=== PATIENT | female | born 1940 | race Caucasian/White ===

== ENCOUNTER 2018-08-25 20:14 | Inpatient (IN) | payer MEDICARE ==
[2018-08-25 20:56] LABS: #Basophils 0.1 thou/uL (0.0-0.2); #Eosinphils 0.1 thou/uL (0.0-0.7); %Basophils 0.4 % (0.0-1.0); %Eosinophils 0.7 % (0.0-10.0); %Lymphocytes 15.1 % (21.0-51.0); %Monocytes 7.7 % (0.0-10.0); %Neutrophils 76.1 % (42.0-75.0); Hemoglobin 8.5 g/dL (12.0-16.0); Mean Corpuscular HGB CONC 32.3 g/dL (32.0-36.0); Mean Corpuscular Hemoglobin 28.2 pg (27.0-31.0); Mean Corpuscular Volume 87.5 fL (78.0-98.0); Mean Platelet Volume 9.2 fL (7.4-10.4); Platelet Count 349 thou/uL (130-400); Red Blood Cell (RBC) Count 3.01 mill/uL (4.20-5.40); White Blood Cell (WBC) Count 13.1 thou/uL (4.8-10.8)
[2018-08-25 21:21] LABS: ALT (SGPT) 9 U/L (8-55); AST (SGOT) 13 U/L (5-34); Albumin 3.8 g/dL (3.4-4.8); Alkaline Phosphatase 67 U/L (40-150); Anion Gap 15 mmol/L (10-20); BUN (Urea Nitrogen) 39 mg/dL (9.8-20.1); Bilirubin, Total 0.3 mg/dL (0.2-1.2); Calc. Creatinine Clearance 0 mL/min (70-130); Calcium 8.9 mg/dL (7.8-10.44); Carbon Dioxide 23 mmol/L (23-31); Chloride 105 mmol/L (98-107); Estimated GFR-MDRD 44; Globulin 2.6 g/dL (2.4-3.5); Glucose 135 mg/dL (83-110); Potassium 3.7 mmol/L (3.5-5.1); Protein, Total 6.4 g/dL (6.0-8.3); Sodium 139 mmol/L (136-145)
--- NOTE | 2018-08-25 21:33 | RAD ---
FRONTAL AND LATERAL IMAGING CHEST 08/25/18 COMPARISON: None. HISTORY: Dyspnea with exertion. FINDINGS: Dual lead transvenous pacing device inserted the left subclavian approach. Mild elevation of right he midiaphragm. Mild diffuse increased linear interstitial density. No pneumothorax, pleural fluid, foca l consolidation or alveolar edema. IMPRESSION: No acute findings. Chronic findings as above. POS: ANTONIOH
[2018-08-26 02:37] VITALS: BMI 25.7
[2018-08-26] MEDS ORDERED: Sodium Chloride 0.9% 1,000 ML IV SCH (02:59)
--- NOTE | 2018-08-26 09:29 | ULT ---
BILATERAL CAROTID DUPLEX ULTRASOUND: HISTORY: Syncope, dizziness. FINDINGS: Real-time color Doppler evaluation of right and left carotid systems was performed. This shows moder ate plaque formation at the origin of both internal carotid arteries. On the right side, peak systolic velocities of the common carotid were 132 cm/s. internal carotid ve locities were 122 cm/s. External carotid velocities were 157 cm/s. On the left side peak systolic velocities of the common carotid were 132 cm/s. Internal carotid velo cities were 120 cm/s. External carotid velocities were 108 cm/s. Vertebral flow is antegrade bilaterally. IMPRESSION: Moderate plaque formation at the origin of both internal carotid arteries. No hemodynamically signif icant stenosis by NASCET criteria. POS: RIZWAN
[2018-08-26] MEDS ORDERED: Guaifenesin DM 100-10/5 ML UDCUP PO PRN (11:28)
[2018-08-26] MEDS ORDERED: Senokot S 8.6-50 MG TAB PO PRN (11:28)
[2018-08-26 12:06] LABS: Hemoglobin 6.7 g/dL (12.0-16.0)
[2018-08-26] MEDS: Sodium Chloride 0.9% 1,000 ML IV SCH (12:55)
--- NOTE | 2018-08-26 12:59 | HP ---
REASON FOR ADMISSION: Possible GI bleed, acute kidney injury, and vasovagal syncope. HISTORY OF PRESENT ILLNESS: The patient gives history of feeling dizzy when she tries to get up from sitting down position. This started on Wednesday. This has gotten worse over the course of 2 days. The patient also has severe nauseating feeling when she tries to get up. No complaints of bleeding per rectum. She does not recall her previous hemoglobin level, but definitely knows it is not in the single digits. She is taking Xarelto for chronic atrial fibrillation. No complaints of abdominal pain, diarrhea, or flu-like illness. The patient states she has been hydrating as before. PAST MEDICAL AND SURGICAL HISTORY: Apparently has [place] mitral valve issues with no intervention done for that from 1983 and has been stable per the patient. Chronic atrial fibrillation, irritable bowel syndrome, history of migraine, osteoarthritis, pacemaker for bradycardia, and appendectomy. Last colonoscopy was in [place], 8 years back, which was apparently normal as far as she knows. CURRENT MEDICATIONS: 1. Xarelto 20 mg p.o. daily. 2. Toprol-XL 25 mg p.o. daily. ALLERGIES: ALLERGIC TO ROCEPHIN. PERSONAL HISTORY: Does not abuse alcohol or drugs. Quit smoking more than 16 years ago. Lives with her . FAMILY HISTORY: Mother at the age of 75 years. She has had history of intracranial bleed and was on Coumadin for atrial fibrillation. Father at the age of 75 years. He has had history of brain cancer. CODE STATUS: Full. Power of securities attorney is her . REVIEW OF SYSTEMS: CONSTITUTIONAL: Negative for weight loss or gain, ability to conduct usual activities. SKIN: Negative for rash, itching. EYES: Negative for double vision, pain. ENT/MOUTH: Negative for nose bleeding, neck stiffness, pain, tenderness. CARDIOVASCULAR: Negative for palpitations, dyspnea on exertion, orthopnea. RESPIRATORY: Negative for shortness of breath, wheezing, cough, hemoptysis, fever or night sweats. GASTROINTESTINAL: Negative for poor appetite, abdominal pain, heartburn, nausea, vomiting, constipation, or diarrhea. GENITOURINARY: Negative for urgency, frequency, dysuria, nocturia. MUSCULOSKELETAL: Negative for pain, swelling. NEUROLOGIC/PSYCHIATRIC: Negative for anxiety, depression. ALLERGY/IMMUNOLOGIC: Negative for skin rash, bleeding tendency. Please see short and difficult for urgency, frequency, dysuria, nocturia. MUSCULOSKELETAL: Negative for pain, swelling. NEUROLOGIC/PSYCHIATRIC: Negative for anxiety, depression. ALLERGY/IMMUNOLOGIC: Negative for skin rash, bleeding tendency. PHYSICAL EXAMINATION: GENERAL: The patient is a 78-year-old female, who is currently not in any acute distress. VITAL SIGNS: Blood pressure 112/60, pulse 98 per minute, respiratory rate 20 per minute, temperature 97.9 degrees Fahrenheit, and saturating 96% on room air. NECK: Supple. No elevated JVD. HEENT: Eyes, extraocular muscles intact. Pupils are reacting to light. Oral cavity, mucous membranes are dry. No exudates or congestion. CARDIOVASCULAR SYSTEM: S1 and S2 heard. Regular rhythm. RESPIRATORY SYSTEM: Air entry 1+ bilateral. No rales or rhonchi. ABDOMEN: Soft. Bowel sounds heard. No tenderness, rigidity, or guarding. EXTREMITIES: No peripheral edema or calf tenderness. VASCULAR SYSTEM: Peripheral pulses 1+ bilateral. No ischemic ulcerations or gangrene. CENTRAL NERVOUS SYSTEM: No gross focal deficits noted. The patient is alert, awake, and oriented well. PSYCHIATRIC SYSTEM: The patient's mood is euthymic. No hallucinations or delusions. LABORATORY DATA: EKG done shows sinus tach at 105 beats per minute. There is nonspecific ST-T wave changes noted. H and H on arrival were 8.5 and 26 and a repeat 1 done at 11 a.m. shows it to be a 6.7 and 20. White count of 13, MCV is 87, and platelet count 349 with 76% neutrophils. BUN 39, creatinine 1.1, serum bicarb 23, and serum glucose 135. Liver enzymes within normal limits. First set of troponin is negative. Albumin is 3.8. Chest x-ray done shows no acute findings. There is mild elevation of right hemidiaphragm. Ultrasound carotids bilateral shows moderate plaque formation at the origin of both internal carotid arteries. No hemodynamically significant stenosis. CLINICAL IMPRESSION AND PLAN: The patient will be admitted to telemetry for likely GI bleed with acute blood loss anemia and acute kidney injury with vasovagal syncope. She will be on normal saline at 75 mL per hour. I will also place her on clear liquid diet. I have discussed her findings with Dr. Matthew Johnson. The last dose of Xarelto was yesterday and the patient will be given 2 units of packed cell transfusion for today. She will have both upper and lower endoscopies done in the morning. We will have serial H and H done. The patient at present has no obvious GI bleed. We will obtain stool occult blood testing as well. She will also be on Protonix 40 mg IV q.12 hourly. If needed, we will give prothrombin concentrate if the patient were to worsen with her H and H despite transfusion. We will continue her Toprol-XL as before. Job ID: [id number]
[2018-08-26] MEDS: Acetaminophen 325 MG TAB PO PRN (14:51)
--- NOTE | 2018-08-26 17:19 | CON ---
DATE OF CONSULTATION: 08/26/2018 REASON FOR CONSULTATION: Anemia. HISTORY OF PRESENT ILLNESS: Deborah London is a 78-year-old woman, who was admitted to the hospital last night with severe symptomatic anemia. She denies any prior gastrointestinal history. She carries a diagnosis of IBS, but really does not have much in the way of chronic GI symptoms. She recalls having undergone a colonoscopy about 8 years ago in [place] with no polyps, just some diverticulosis and internal hemorrhoids. She has never undergone upper endoscopy that she can recall. She is on Xarelto long-term for her atrial fibrillation. She does have a pacemaker in place. She has been on Xarelto for over 4 years with no prior complications. Just over the past 3 days, she started getting orthostatic lightheadedness and overall fatigue and weakness associated with nausea. She has had a few episodes of nonbloody emesis during this time. No bowel movements over the past couple of days, but her bowel movements have always been normal. She denies any melena or hematochezia, abdominal pain, or diarrhea. She denies any weight loss. She presented to the hospital last night and hemoglobin was found to be 8.5 with normal MCV of 87.5. It is unclear what her baseline is, but she does not recall ever being told she was anemic at least not any time recently. She has had no evidence of overt bleeding since arrival. She is going to be getting 2 units RBC transfusion as hemoglobin did decline further to 6.7 this morning. REVIEW OF SYSTEMS: Full review of systems including constitutional, head, eyes, ears, nose, throat, GI, , cardiovascular, respiratory, musculoskeletal, and neurologic systems are negative except as noted in the HPI. PAST MEDICAL HISTORY: Atrial fibrillation, IBS, migraines, osteoarthritis, appendectomy, and pacemaker placement. ALLERGIES: ROCEPHIN. OUTPATIENT MEDICATIONS: 1. Xarelto 20 mg daily. 2. Toprol-XL. SOCIAL HISTORY: She is a former smoker, quit a long time ago. No alcohol or drug use. FAMILY HISTORY: Noncontributory. PHYSICAL EXAMINATION: VITAL SIGNS: Temperature 98.7, pulse 131, blood pressure 127/69, and 99% oxygen saturation on room air. GENERAL: A 78-year-old woman, lying in bed comfortably, in no acute distress. SKIN: She is pale. No jaundice. No rashes were palpable. EYES: No scleral icterus. Extraocular movements intact. ENT: Mucous membranes moist. No oral lesions. LYMPH: No submandibular or supraclavicular lymphadenopathy. THYROID: Nontender to palpation. HEART: Regular rate and rhythm. LUNGS: Clear to auscultation bilaterally. ABDOMEN: Bowel sounds present. Flat, soft, and nontender to palpation throughout. No masses or organomegaly appreciated. EXTREMITIES: No peripheral edema. VESSELS: Radial pulses 2+ bilaterally. NEUROLOGIC: Cranial nerves 2 to 12 intact bilaterally. No focal deficits. LABORATORY STUDIES: Hemoglobin 6.7, MCV 87.5, WBC 13.1, and platelets 349. D-dimer is negative. Troponin negative. LFTs all normal. BUN 39 and creatinine 1.18. ASSESSMENT AND PLAN: Severe symptomatic anemia, normocytic. The chronicity of her anemia is unclear. She denies any overt bleeding from anywhere, but her significant symptoms of anemia are fairly acute over just the past few days. We discussed a broad differential for anemia, which would include gastrointestinal blood loss. She is at high risk for this being on long-term Xarelto. I agree with the proton pump inhibitor for now. We will plan for further investigation with esophagogastroduodenoscopy and colonoscopy tomorrow. I understand blood transfusion is planned for later today as well. We will also check iron studies, vitamin B12, and folic acid levels. Thank you for the consultation. Further recommendations following esophagogastroduodenoscopy and colonoscopy tomorrow. Her Xarelto is being held. Please call anytime with questions or concerns. Job ID: [id number]
[2018-08-26] MEDS ORDERED: GoLYTELY 4,000 ml Bottle PO SCH (18:00)
[2018-08-26 18:58] LABS: Hemoglobin 8.8 g/dL (12.0-16.0)
[2018-08-26 23:39] LABS: Hemoglobin 11.3 g/dL (12.0-16.0)
[2018-08-27] MEDS: Pantoprazole 40 MG VIAL IVP SCH ×2 (00:05→10:06)
[2018-08-27] MEDS: Acetaminophen 325 MG TAB PO PRN ×2 (01:10→10:05)
[2018-08-27] MEDS: Sodium Chloride 0.9% 1,000 ML IV SCH ×2 (04:48→12:54)
[2018-08-27 05:44] LABS: ALT (SGPT) 11 U/L (8-55); AST (SGOT) 18 U/L (5-34); Albumin 3.8 g/dL (3.4-4.8); Alkaline Phosphatase 64 U/L (40-150); Anion Gap 13 mmol/L (10-20); BUN (Urea Nitrogen) 21 mg/dL (9.8-20.1); Bilirubin, Total 0.5 mg/dL (0.2-1.2); Calc. Creatinine Clearance 54 mL/min (70-130); Calcium 8.4 mg/dL (7.8-10.44); Carbon Dioxide 22 mmol/L (23-31); Chloride 111 mmol/L (98-107); Estimated GFR-MDRD 67; Globulin 2.2 g/dL (2.4-3.5); Glucose 108 mg/dL (83-110); Iron 41 ug/dL (50-170); Iron Binding Capacity, Total 379 mcg/dL (265-497); Potassium 3.8 mmol/L (3.5-5.1); Sodium 142 mmol/L (136-145)
[2018-08-27 06:16] LABS: Folate (Folic Acid) 11.4 ng/mL (7.0-31.4)
--- NOTE | 2018-08-27 09:39 | OP ---
DATE OF PROCEDURE: 08/27/2018 MANAGER INVENTORY CONTROL SURGEON: None. PROCEDURES PERFORMED: 1. Esophagogastroduodenoscopy with biopsies. 2. Colonoscopy, diagnostic. INDICATION: Severe symptomatic anemia. MEDICATIONS: See Anesthesia record. FINDINGS: After discussion of the risks, benefits, and alternatives of the procedure, informed consent was obtained and witnessed. Pre-endoscopic cardiopulmonary examination was satisfactory. Time-out was performed before sedation was achieved. Sedation was achieved with Anesthesia assistance in the endoscopy unit. A Pentax adult upper endoscope was placed into the oropharynx and passed through the cricopharyngeus under direct visualization. The esophageal mucosa appeared normal. The endoscope was advanced into the stomach. Forward and retroflexed views of the entire gastric mucosa were obtained. There was some patchy gastritis in the gastric body with a few small erosions. In the gastric antrum, there is a larger ulcer. This is shallow and appears to be healing. There are no stigmata of high risk for rebleeding. The upper endoscope was passed through the pylorus. There is some fibrosis of the pyloric area with mild stricture, but the scope was easily able to pass through this area. The duodenal bulb, first and second portions of the duodenum appeared normal. The upper endoscope was completely withdrawn, and the patient was repositioned. Digital rectal exam was performed, which was unremarkable. The Pentax adult colonoscope was inserted into the anus and passed forward to the cecum in the usual fashion. The cecal base was identified by the appendiceal orifice as well as the ileocecal valve. The terminal ileum was not intubated. The colonoscope was slowly withdrawn in a gradual and circumferential manner with careful examination of the entire colonic mucosa. The quality of the prep was good. There were no mucosal abnormalities detected throughout the entire length of the colon. There is diverticulosis in the left side of the colon with no evidence of diverticulitis. Retroflexion in the rectum demonstrates internal hemorrhoids. The colonoscope was completely withdrawn, and the patient allowed to recover. The patient tolerated the procedure well. There were no immediate postprocedure complications. IMPRESSION: 1. Gastritis with small healing antral ulcer, biopsied to rule out Helicobacter pylori. 2. Mild fibrotic stricture of the pylorus. 3. Otherwise normal esophagogastroduodenoscopy. 4. Left-sided colonic diverticulosis. 5. Internal hemorrhoids. 6. Otherwise normal colonoscopy. RECOMMENDATIONS: 1. Twice daily oral proton pump inhibitor for the next 2 months. 2. Follow up pathology on the gastric biopsies. If H. pylori is present, treat with triple therapy and confirm eradication. 3. Advance diet. 4. Replace vitamin B12. 5. GI will sign off. Please call back with any questions or concerns. We will plan to see her back in clinic in about a month. Job ID: [id number]
[2018-08-27 10:18] VITALS: TEMP 97.5
[2018-08-27] MEDS ORDERED: PROPOFOL 200 MG/20 ML VIAL ONE (11:09)
[2018-08-27 12:10] VITALS: BP 118/62
--- NOTE | 2018-08-27 14:04 | PDOC.PN ---
- Subjective Encounter Start Date: 08/27/18 Encounter Start Time: 10:45 Subjective: had endoscopies this am -: feels better, no abd or nausea. Is amb with no dizziness -: is awaiting her food tray - Objective Resuscitation Status - Order Detail: 08/26/18 11:23 Resuscitation Status Routine Resuscitation Status: FULL: Full Resuscitation MAR Reviewed: Yes Vital Signs & Weight: Vital Signs (12 hours) Temp Pulse Resp BP BP Pulse Ox 08/27/18 12:08 79 16 118/62 08/27/18 10:11 97.5 F L 91 16 140/77 95 08/27/18 04:00 97.7 F 92 16 136/65 100 Weight Weight 136 lb Most Recent Monitor Data Heart Rate from ECG 98 I&O: 08/26/18 08/27/18 08/28/18 06:59 06:59 06:59 Intake Total 373 2402 0 Output Total 1250 Balance 373 1152 0 Result Diagrams: 08/26/18 23:26 08/27/18 05:04 Phys Exam - Physical Examination HEENT: PERRLA, moist MMs Neck: no JVD, supple Respiratory: no wheezing, no rales Cardiovascular: RRR, no significant murmur Gastrointestinal: soft, non-tender, positive bowel sounds Musculoskeletal: no edema, pulses present Neurological: non-focal, moves all 4 limbs Psychiatric: normal affect, A&O x 3 Dx/Plan (1) Acute blood loss anemia Code(s): D62 - ACUTE POSTHEMORRHAGIC ANEMIA Status: Acute (2) GI bleed Code(s): K92.2 - GASTROINTESTINAL HEMORRHAGE, UNSPECIFIED Status: Acute Qualifiers: GI bleed type/associated pathology: gastric ulcer Qualified Code(s): K25.4 - Chronic or unspecified gastric ulcer with hemorrhage (3) PUD (peptic ulcer disease) Code(s): K27.9 - PEPTIC ULC, SITE UNSP, UNSP AC OR CHR, W/O HEMOR OR PERF Status: Acute (4) Afib Code(s): I48.91 - UNSPECIFIED ATRIAL FIBRILLATION Status: Chronic Qualifiers: Atrial fibrillation type: paroxysmal Qualified Code(s): I48.0 - Paroxysmal atrial fibrillation (5) HTN (hypertension) Code(s): I10 - ESSENTIAL (PRIMARY) HYPERTENSION Status: Chronic Qualifiers: Hypertension type: essential hypertension Qualified Code(s): I10 - Essential (primary) hypertension (6) SARTHAK (acute kidney injury) Code(s): N17.9 - ACUTE KIDNEY FAILURE, UNSPECIFIED Status: Resolved - Plan hemostable, Hb around 11g -: had endoscopies done this am, d/w -: pt wants to go home, will dc home -: to restart xarelto this evening -: has f/u with in 4 weeks, to f/u with PCP to review biopsy results * .
--- NOTE | 2018-08-29 15:19 | DIS ---
DATE OF ADMISSION: 08/26/2018 DATE OF DISCHARGE: 08/27/2018 DISCHARGE DISPOSITION: Home. PRIMARY DISCHARGE DIAGNOSES: 1. Gastrointestinal bleed with acute blood loss anemia and peptic ulcer disease. 2. Chronic atrial fibrillation, which is paroxysmal. 3. Hypertension. 4. Acute kidney injury due to gastrointestinal bleed, resolved. PROCEDURES DONE DURING HOSPITALIZATION: The patient had upper and lower endoscopies done by Dr. Alex Castro on 08/27/2018, which showed gastritis with small healing antral ulcer, which has been biopsied to rule out H pylori; mild fibrotic stricture of the pylorus; left-sided colonic diverticulosis; internal hemorrhoids were seen. Echo with 2D Doppler showed EF of 60% to 65%, mild anterior leaflet mitral valve prolapse, [id number] aortic regurgitation, elevated RVSP at 52 mmHg. Carotid Doppler done, showed moderate plaque formation at the origin of both internal carotid arteries, no hemodynamically significant stenosis. H and H had dropped down to 6.7 and 20 on the with discharge numbers of 11 and 34 after the patient received 2 units of packed cell transfusion. Initial BUN and creatinine were 39 and 1.1 with discharge numbers of 21 and 0.8. B12 levels were 141, folic acid 11.4. DISCHARGE MEDICATIONS: 1. Protonix 40 mg p.o. twice daily. 2. Xarelto 20 mg p.o. q.p.m. 3. Toprol-XL 25 mg p.o. daily. ALLERGIES: CEFTRIAXONE. INPATIENT CONSULT: Dr. Alex Castro. DISCHARGE PLAN: The patient to follow up with Dr. Alex Castro in 4 weeks and she needs to see a primary care physician in 1 week. BRIEF COURSE DURING HOSPITALIZATION: The patient initially presented to ER with complaints of feeling dizzy. This was associated with standing up from sitting down position and had nauseating feeling as well. She essentially had vasovagal syncope with acute blood loss anemia. The patient was on Xarelto and has had serial H and H done. This was held for 2 days and has been restarted at the time of discharge. The patient had both upper and lower endoscopies done as her hemoglobin dropped to 6 g. The patient had 2 units of packed cell transfusion. Endoscopy revealed gastritis with antral ulcer. Biopsy has been obtained to rule out H pylori, and the patient needs to follow up with her primary care physician for the results of the same. She is otherwise hemodynamically stable and will be shortly discharged home. I have discussed regarding Amolto with Dr. Alex Castro, and this can be started from the evening of the day of discharge. Please see a [id number] documentation for the day of discharge on [employer]. Job ID: [id number]
== END 2018-08-27 13:34 | disposition home or self-care (01) | DRG 378 ==
LOC: ERS 20:14 → 2SW 08-26 01:39 → OBSVTOIN 08-26 11:28 → 2NO 08-26 21:57
PROVIDERS: ADMIT Internal Medicine; ATTEND Internal Medicine
PROC: 30233N1 Transfusion of Nonautologous Red Blood Cells into Peripheral Vein, Percutaneous Approach (ICD-10-PCS; 2018-08-26)
PROC: 0DB68ZX Excision of Stomach, Via Natural or Artificial Opening Endoscopic, Diagnostic (ICD-10-PCS; principal; 2018-08-27)
PROC: 0DJD8ZZ Inspection of Lower Intestinal Tract, Via Natural or Artificial Opening Endoscopic (ICD-10-PCS; 2018-08-27)
DX: K27.4 Chronic or unspecified peptic ulcer, site unspecified, with hemorrhage (principal); D62 Acute posthemorrhagic anemia; N17.9 Acute kidney failure, unspecified; K31.1 Adult hypertrophic pyloric stenosis; I48.0 Paroxysmal atrial fibrillation; K29.70 Gastritis, unspecified, without bleeding; K57.30 Diverticulosis of large intestine without perforation or abscess without bleeding; K64.8 Other hemorrhoids; K58.9 Irritable bowel syndrome, unspecified; G43.909 Migraine, unspecified, not intractable, without status migrainosus; M19.90 Unspecified osteoarthritis, unspecified site; I10 Essential (primary) hypertension; Z87.891 Personal history of nicotine dependence; Z88.1 Allergy status to other antibiotic agents; Z79.01 Long term (current) use of anticoagulants; Z79.899 Other long term (current) drug therapy; Z95.0 Presence of cardiac pacemaker
CPT/HCPCS: 36415; 36430; 71046; 80053; 82274; 82607; 82728; 82746; 83540; 83550; 84484; 85014; 85018; 85025; 85379; 86850; 86900; 86901; 88305; 88312; 93005; 93306; 93880; 94760; C9113; J2704; P9016